=== PATIENT | male | born 1970 | race African-American/Black ===

== ENCOUNTER 2017-04-03 11:15 | Inpatient (IN) | payer OTHER ==
[2017-04-03 12:42] VITALS: BMI 26.6
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
[2017-04-03] MEDS ORDERED: MENTHOL/PHENOL 1 EACH UD MM PRN (14:42)
[2017-04-03] MEDS ORDERED: hydrOXYzine PAMOATE 50 MG CAPSULE (FP) PO PRN (14:42)
[2017-04-03] MEDS ORDERED: MAG HYDROX/AL HYDROX/SIMETH 30 ML UNIT-DOSE CUP PO PRN (14:42)
[2017-04-03] MEDS ORDERED: MAGNESIUM CITRATE 300 ML BOTTLE PO PRN (14:42)
[2017-04-03] MEDS ORDERED: diphenhydrAMINE HCL 50 MG CAPSULE PO PRN (14:42)
[2017-04-03] MEDS ORDERED: IBUPROFEN 400 MG TABLET (FP) PO PRN (14:42)
[2017-04-03] MEDS ORDERED: guaiFENesin/D-METHORPHAN HB 10 ML UNIT-DOSE CUPS PO PRN (14:42)
[2017-04-03] MEDS ORDERED: LOPERAMIDE HCL 2 MG CAPSULE PO PRN (14:42)
[2017-04-03] MEDS ORDERED: MAGNESIUM HYDROX 2400MG/30ML ORAL SUSPENSION 30 ML CUP PO PRN (14:42)
[2017-04-03] MEDS ORDERED: P-EPHED 60MG/TRIPROLIDI 2.5MG TABLET PO PRN (14:42)
[2017-04-03] MEDS ORDERED: IBUPROFEN 600 MG TABLET (FP) PO PRN (14:45)
[2017-04-03 16:48] LABS: MCH 29.7 pg (25.7-33.7); MEAN CELL VOLUME 87.4 fl (80-96); MEAN PLT VOLUME 8.4 fl (7.5-11.1); PLATELET COUNT 283 K/MM3 (134-434); WHITE BLOOD COUNT 6.5 K/mm3 (4.0-10.0)
[2017-04-03 17:00] LABS: URINE APPEARANCE CLEAR; URINE BILIRUBIN NEGATIVE (NEGATIVE); URINE BLOOD NEGATIVE (NEGATIVE); URINE COLOR YELLOW; URINE GLUCOSE (UA) NEGATIVE (NEGATIVE); URINE KETONE NEGATIVE (NEGATIVE); URINE LEUK ESTERASE NEGATIVE (NEGATIVE); URINE NITRITE NEGATIVE (NEGATIVE); URINE PROTEIN NEGATIVE (NEGATIVE); URINE UROBILINOGEN NEGATIVE mg/dL (0.2-1.0)
[2017-04-03 17:18] LABS: ALBUMIN 4.3 g/dl (3.4-5.0); ANION GAP 10 (8-16); BILIRUBIN,TOTAL 0.3 mg/dL (0.2-1.0); CALCIUM 9.1 mg/dL (8.5-10.1); CO2 26 mmol/L (21-32); CREATININE 1.1 mg/dL (0.7-1.3); GLUCOSE,RANDOM 117 mg/dL (74-106); SGOT/AST 13 U/L (15-37); SGPT/ALT 20 U/L (12-78); TOT PROT 7.5 g/dl (6.4-8.2)
[2017-04-03 17:19] LABS: ALK PHOS 76 U/L (45-117)
[2017-04-03] MEDS: ERGOCALCIFEROL (VITAMIN D2) 50,000 UNIT CAPSULE (FP) PO SCH (17:22)
[2017-04-03] MEDS: hydrOXYzine PAMOATE 50 MG CAPSULE (FP) PO SCH (21:10)
[2017-04-03] MEDS: QUEtiapine FUMARATE 400 MG TABLET PO SCH (21:10)
[2017-04-03] MEDS: THIAMINE HCL 100 MG TABLET (FP) PO SCH (21:11)
[2017-04-04] MEDS: PANTOPRAZOLE 40 MG TABLET (FP) PO SCH ×2 (00:02→09:43)
[2017-04-04] MEDS: NICOTINE 7 MG/24 HOURS TOPICAL PATCH TD SCH (09:43)
[2017-04-04] MEDS: busPIRone HCL 10 MG TABLET (FP) PO SCH (09:43)
[2017-04-04] MEDS: PRENATAL VITAMINS W/ FOLIC ACID TABLET (FP) PO SCH (09:43)
[2017-04-04] MEDS: NICOTINE POLACRILEX 4 MG GUM BC PRN (09:44)
[2017-04-04] MEDS ORDERED: PANTOPRAZOLE 40 MG TABLET (FP) PO SCH (10:00)
--- NOTE | 2017-04-04 11:33 | EKG ---
Test Reason : Blood Pressure : / mmHG Vent. Rate : 087 BPM Atrial Rate : 087 BPM P-R Int : 172 ms QRS Dur : 074 ms QT Int : 342 ms P-R-T Axes : 064 070 075 degrees QTc Int : 411 ms NORMAL SINUS RHYTHM POSSIBLE LEFT ATRIAL ENLARGEMENT BORDERLINE ECG NO PREVIOUS ECGS AVAILABLE Confirmed by ROSALEE LUJAN, JULIO ([id number]) on 04/04/2017 11:33:01 AM Referred By: Confirmed By:JULIO TURK MD
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
[2017-04-04] MEDS: MIRTAZAPINE 15 MG TABLET (FP) PO SCH (21:32)
[2017-04-04] MEDS: hydrOXYzine PAMOATE 50 MG CAPSULE (FP) PO SCH (21:33)
[2017-04-04] MEDS: THIAMINE HCL 100 MG TABLET (FP) PO SCH (21:33)
[2017-04-04] MEDS: QUEtiapine FUMARATE 400 MG TABLET PO SCH (21:33)
[2017-04-05] MEDS: PRENATAL VITAMINS W/ FOLIC ACID TABLET (FP) PO SCH (09:44)
[2017-04-05] MEDS: busPIRone HCL 10 MG TABLET (FP) PO SCH (09:44)
[2017-04-05] MEDS: PANTOPRAZOLE 40 MG TABLET (FP) PO SCH ×2 (09:45→21:05)
[2017-04-05] MEDS: NICOTINE 7 MG/24 HOURS TOPICAL PATCH TD SCH (09:45)
[2017-04-05] MEDS: THIAMINE HCL 100 MG TABLET (FP) PO SCH (21:05)
[2017-04-05] MEDS: QUEtiapine FUMARATE 400 MG TABLET PO SCH (21:05)
[2017-04-05] MEDS: hydrOXYzine PAMOATE 50 MG CAPSULE (FP) PO SCH (21:05)
[2017-04-05] MEDS: MIRTAZAPINE 15 MG TABLET (FP) PO SCH (21:05)
[2017-04-06] MEDS: busPIRone HCL 10 MG TABLET (FP) PO SCH (09:48)
[2017-04-06] MEDS: PRENATAL VITAMINS W/ FOLIC ACID TABLET (FP) PO SCH (09:48)
[2017-04-06] MEDS: NICOTINE POLACRILEX 4 MG GUM BC PRN ×2 (09:49→14:42)
[2017-04-06] MEDS: NICOTINE 7 MG/24 HOURS TOPICAL PATCH TD SCH (09:49)
[2017-04-06] MEDS: THIAMINE HCL 100 MG TABLET (FP) PO SCH (21:10)
[2017-04-06] MEDS: MIRTAZAPINE 15 MG TABLET (FP) PO SCH (21:10)
[2017-04-06] MEDS: QUEtiapine FUMARATE 400 MG TABLET PO SCH (21:10)
[2017-04-06] MEDS: PANTOPRAZOLE 40 MG TABLET (FP) PO SCH (21:10)
[2017-04-06] MEDS: hydrOXYzine PAMOATE 50 MG CAPSULE (FP) PO SCH (21:10)
[2017-04-07] MEDS: PRENATAL VITAMINS W/ FOLIC ACID TABLET (FP) PO SCH (09:51)
[2017-04-07] MEDS: busPIRone HCL 10 MG TABLET (FP) PO SCH (09:51)
[2017-04-07] MEDS: NICOTINE 7 MG/24 HOURS TOPICAL PATCH TD SCH (09:52)
[2017-04-07] MEDS: hydrOXYzine PAMOATE 50 MG CAPSULE (FP) PO SCH (21:07)
[2017-04-07] MEDS: QUEtiapine FUMARATE 400 MG TABLET PO SCH (21:07)
[2017-04-07] MEDS: THIAMINE HCL 100 MG TABLET (FP) PO SCH (21:07)
[2017-04-07] MEDS: PANTOPRAZOLE 40 MG TABLET (FP) PO SCH (21:07)
[2017-04-07] MEDS: MIRTAZAPINE 15 MG TABLET (FP) PO SCH (21:08)
[2017-04-08] MEDS: PRENATAL VITAMINS W/ FOLIC ACID TABLET (FP) PO SCH (09:49)
[2017-04-08] MEDS: busPIRone HCL 10 MG TABLET (FP) PO SCH (09:49)
[2017-04-08] MEDS: NICOTINE 7 MG/24 HOURS TOPICAL PATCH TD SCH (09:49)
[2017-04-08] MEDS: NICOTINE POLACRILEX 4 MG GUM BC PRN (09:51)
[2017-04-08] MEDS: ACETAMINOPHEN 325 MG TABLET (FP) PO PRN (17:39)
[2017-04-08] MEDS: hydrOXYzine PAMOATE 50 MG CAPSULE (FP) PO SCH (21:09)
[2017-04-08] MEDS: THIAMINE HCL 100 MG TABLET (FP) PO SCH (21:09)
[2017-04-08] MEDS: MIRTAZAPINE 15 MG TABLET (FP) PO SCH (21:09)
[2017-04-08] MEDS: PANTOPRAZOLE 40 MG TABLET (FP) PO SCH (21:10)
[2017-04-08] MEDS: QUEtiapine FUMARATE 400 MG TABLET PO SCH (21:10)
[2017-04-09] MEDS: PRENATAL VITAMINS W/ FOLIC ACID TABLET (FP) PO SCH (09:59)
[2017-04-09] MEDS: busPIRone HCL 10 MG TABLET (FP) PO SCH (09:59)
[2017-04-09] MEDS: NICOTINE 7 MG/24 HOURS TOPICAL PATCH TD SCH (09:59)
[2017-04-09] MEDS: NICOTINE POLACRILEX 4 MG GUM BC PRN (10:00)
[2017-04-09] MEDS: THIAMINE HCL 100 MG TABLET (FP) PO SCH (21:11)
[2017-04-09] MEDS: hydrOXYzine PAMOATE 50 MG CAPSULE (FP) PO SCH (21:12)
[2017-04-09] MEDS: MIRTAZAPINE 15 MG TABLET (FP) PO SCH (21:12)
[2017-04-09] MEDS: PANTOPRAZOLE 40 MG TABLET (FP) PO SCH (21:12)
[2017-04-09] MEDS: QUEtiapine FUMARATE 400 MG TABLET PO SCH (21:12)
[2017-04-10] MEDS: ERGOCALCIFEROL (VITAMIN D2) 50,000 UNIT CAPSULE (FP) PO SCH (09:55)
[2017-04-10] MEDS: NICOTINE 7 MG/24 HOURS TOPICAL PATCH TD SCH (09:55)
[2017-04-10] MEDS: PRENATAL VITAMINS W/ FOLIC ACID TABLET (FP) PO SCH (09:55)
[2017-04-10] MEDS: busPIRone HCL 10 MG TABLET (FP) PO SCH (09:55)
[2017-04-10] MEDS: NICOTINE POLACRILEX 4 MG GUM BC PRN (09:57)
[2017-04-10] MEDS: hydrOXYzine PAMOATE 50 MG CAPSULE (FP) PO SCH (21:09)
[2017-04-10] MEDS: THIAMINE HCL 100 MG TABLET (FP) PO SCH (21:09)
[2017-04-10] MEDS: MIRTAZAPINE 15 MG TABLET (FP) PO SCH (21:10)
[2017-04-10] MEDS: QUEtiapine FUMARATE 400 MG TABLET PO SCH (21:10)
[2017-04-10] MEDS: PANTOPRAZOLE 40 MG TABLET (FP) PO SCH (21:10)
[2017-04-11] MEDS ORDERED: PT OWN MED DRAWER 7, Y5N ONE (08:49)
[2017-04-11] MEDS: PRENATAL VITAMINS W/ FOLIC ACID TABLET (FP) PO SCH (09:56)
[2017-04-11] MEDS: busPIRone HCL 10 MG TABLET (FP) PO SCH (09:56)
[2017-04-11] MEDS: NICOTINE POLACRILEX 4 MG GUM BC PRN (09:57)
[2017-04-11] MEDS: NICOTINE 7 MG/24 HOURS TOPICAL PATCH TD SCH (11:36)
[2017-04-11] MEDS: QUEtiapine FUMARATE 400 MG TABLET PO SCH (21:07)
[2017-04-11] MEDS: THIAMINE HCL 100 MG TABLET (FP) PO SCH (21:07)
[2017-04-11] MEDS: PANTOPRAZOLE 40 MG TABLET (FP) PO SCH (21:08)
[2017-04-11] MEDS: MIRTAZAPINE 15 MG TABLET (FP) PO SCH (21:08)
[2017-04-11] MEDS: hydrOXYzine PAMOATE 50 MG CAPSULE (FP) PO SCH (21:08)
[2017-04-12] MEDS: busPIRone HCL 10 MG TABLET (FP) PO SCH (09:43)
[2017-04-12] MEDS: PRENATAL VITAMINS W/ FOLIC ACID TABLET (FP) PO SCH (09:43)
[2017-04-12] MEDS: NICOTINE 7 MG/24 HOURS TOPICAL PATCH TD SCH (09:43)
[2017-04-12] MEDS: NICOTINE POLACRILEX 4 MG GUM BC PRN (09:44)
[2017-04-12] MEDS: PANTOPRAZOLE 40 MG TABLET (FP) PO SCH (21:02)
[2017-04-12] MEDS: THIAMINE HCL 100 MG TABLET (FP) PO SCH (21:02)
[2017-04-12] MEDS: hydrOXYzine PAMOATE 50 MG CAPSULE (FP) PO SCH (21:02)
[2017-04-12] MEDS: QUEtiapine FUMARATE 400 MG TABLET PO SCH (21:02)
[2017-04-12] MEDS: MIRTAZAPINE 15 MG TABLET (FP) PO SCH (21:02)
[2017-04-13] MEDS: NICOTINE POLACRILEX 4 MG GUM BC PRN (09:46)
[2017-04-13] MEDS: PRENATAL VITAMINS W/ FOLIC ACID TABLET (FP) PO SCH (09:46)
[2017-04-13] MEDS: NICOTINE 7 MG/24 HOURS TOPICAL PATCH TD SCH (09:46)
[2017-04-13] MEDS: busPIRone HCL 10 MG TABLET (FP) PO SCH (09:46)
[2017-04-13] MEDS: hydrOXYzine PAMOATE 50 MG CAPSULE (FP) PO SCH (21:04)
[2017-04-13] MEDS: QUEtiapine FUMARATE 400 MG TABLET PO SCH (21:04)
[2017-04-13] MEDS: THIAMINE HCL 100 MG TABLET (FP) PO SCH (21:05)
[2017-04-13] MEDS: MIRTAZAPINE 15 MG TABLET (FP) PO SCH (21:05)
[2017-04-13] MEDS: PANTOPRAZOLE 40 MG TABLET (FP) PO SCH (21:05)
[2017-04-14] MEDS: PRENATAL VITAMINS W/ FOLIC ACID TABLET (FP) PO SCH (09:39)
[2017-04-14] MEDS: busPIRone HCL 10 MG TABLET (FP) PO SCH (09:39)
[2017-04-14] MEDS: NICOTINE 7 MG/24 HOURS TOPICAL PATCH TD SCH (09:40)
[2017-04-14] MEDS: NICOTINE POLACRILEX 4 MG GUM BC PRN (09:40)
[2017-04-14] MEDS: MIRTAZAPINE 15 MG TABLET (FP) PO SCH (21:05)
[2017-04-14] MEDS: QUEtiapine FUMARATE 400 MG TABLET PO SCH (21:05)
[2017-04-14] MEDS: PANTOPRAZOLE 40 MG TABLET (FP) PO SCH (21:05)
[2017-04-14] MEDS: THIAMINE HCL 100 MG TABLET (FP) PO SCH (21:06)
[2017-04-14] MEDS: hydrOXYzine PAMOATE 50 MG CAPSULE (FP) PO SCH (21:06)
[2017-04-15] MEDS: busPIRone HCL 10 MG TABLET (FP) PO SCH (10:04)
[2017-04-15] MEDS: PRENATAL VITAMINS W/ FOLIC ACID TABLET (FP) PO SCH (10:04)
[2017-04-15] MEDS: NICOTINE POLACRILEX 4 MG GUM BC PRN ×2 (10:05→21:07)
[2017-04-15] MEDS: NICOTINE 7 MG/24 HOURS TOPICAL PATCH TD SCH (10:05)
[2017-04-15] MEDS: THIAMINE HCL 100 MG TABLET (FP) PO SCH (21:05)
[2017-04-15] MEDS: hydrOXYzine PAMOATE 50 MG CAPSULE (FP) PO SCH (21:05)
[2017-04-15] MEDS: QUEtiapine FUMARATE 400 MG TABLET PO SCH (21:05)
[2017-04-15] MEDS: MIRTAZAPINE 15 MG TABLET (FP) PO SCH (21:06)
[2017-04-15] MEDS: PANTOPRAZOLE 40 MG TABLET (FP) PO SCH (21:06)
[2017-04-16] MEDS: busPIRone HCL 10 MG TABLET (FP) PO SCH (09:46)
[2017-04-16] MEDS: PRENATAL VITAMINS W/ FOLIC ACID TABLET (FP) PO SCH (09:46)
[2017-04-16] MEDS: NICOTINE 7 MG/24 HOURS TOPICAL PATCH TD SCH (09:46)
[2017-04-16] MEDS: NICOTINE POLACRILEX 4 MG GUM BC PRN (09:47)
[2017-04-16] MEDS: ACETAMINOPHEN 325 MG TABLET (FP) PO PRN ×2 (14:15→18:22)
[2017-04-16] MEDS: QUEtiapine FUMARATE 400 MG TABLET PO SCH (21:07)
[2017-04-16] MEDS: THIAMINE HCL 100 MG TABLET (FP) PO SCH (21:07)
[2017-04-16] MEDS: MIRTAZAPINE 15 MG TABLET (FP) PO SCH (21:08)
[2017-04-16] MEDS: PANTOPRAZOLE 40 MG TABLET (FP) PO SCH (21:08)
[2017-04-16] MEDS: hydrOXYzine PAMOATE 50 MG CAPSULE (FP) PO SCH (21:08)
[2017-04-17] MEDS: busPIRone HCL 10 MG TABLET (FP) PO SCH (09:47)
[2017-04-17] MEDS: PRENATAL VITAMINS W/ FOLIC ACID TABLET (FP) PO SCH (09:47)
[2017-04-17] MEDS: NICOTINE 7 MG/24 HOURS TOPICAL PATCH TD SCH (09:47)
[2017-04-17] MEDS: ERGOCALCIFEROL (VITAMIN D2) 50,000 UNIT CAPSULE (FP) PO SCH (09:47)
[2017-04-17] MEDS: NICOTINE POLACRILEX 4 MG GUM BC PRN ×2 (09:48→21:08)
[2017-04-17] MEDS: QUEtiapine FUMARATE 400 MG TABLET PO SCH (21:06)
[2017-04-17] MEDS: MIRTAZAPINE 15 MG TABLET (FP) PO SCH (21:06)
[2017-04-17] MEDS: PANTOPRAZOLE 40 MG TABLET (FP) PO SCH (21:06)
[2017-04-17] MEDS: THIAMINE HCL 100 MG TABLET (FP) PO SCH (21:06)
[2017-04-17] MEDS: hydrOXYzine PAMOATE 50 MG CAPSULE (FP) PO SCH (21:06)
[2017-04-18] MEDS: busPIRone HCL 10 MG TABLET (FP) PO SCH (10:04)
[2017-04-18] MEDS: NICOTINE POLACRILEX 4 MG GUM BC PRN (10:04)
[2017-04-18] MEDS: PRENATAL VITAMINS W/ FOLIC ACID TABLET (FP) PO SCH (10:04)
[2017-04-18] MEDS: NICOTINE 7 MG/24 HOURS TOPICAL PATCH TD SCH (10:04)
[2017-04-18] MEDS: QUEtiapine FUMARATE 400 MG TABLET PO SCH (21:01)
[2017-04-18] MEDS: MIRTAZAPINE 15 MG TABLET (FP) PO SCH (21:01)
[2017-04-18] MEDS: PANTOPRAZOLE 40 MG TABLET (FP) PO SCH (21:02)
[2017-04-18] MEDS: hydrOXYzine PAMOATE 50 MG CAPSULE (FP) PO SCH (21:02)
[2017-04-18] MEDS: THIAMINE HCL 100 MG TABLET (FP) PO SCH (21:03)
[2017-04-19 06:43] VITALS: BP 118/66; PULSE 91; TEMP 97.3
--- NOTE | 2017-04-19 09:23 | PN ---
Psychiatric Progress Note Vital Signs: Vital Signs Period Temp Pulse Resp BP Sys/Botello Pulse Ox Last 24 Hr 97.3 F 91 16-18 118/66 Date of Session: 04/19/17 Chief Complaint:: discharge visit HPI: Patient has addressed cannabis dependence comrbid Schizoaffective disorder. ROS: Acid Reflux, Chronic Back pain, Vit D Deficiency medically managed Current Medications: Active Medications Generic Name Dose Route Start Last Admin Trade Name Freq PRN Reason Stop Dose Admin Acetaminophen 650 mg 04/03/17 14:42 04/16/17 18:22 Tylenol - PO 650 mg Q4H PRN Administration PAIN Al Hydroxide/Mg Hydroxide 30 ml 04/03/17 14:42 04/04/17 21:35 Mylanta Oral Suspension - PO 30 ml Q6H PRN Administration DYSPEPSIA Buspirone HCl 20 mg 04/04/17 10:00 04/18/17 10:04 Buspar - PO 20 mg DAILY HENRIETTA Administration Diphenhydramine HCl 50 mg 04/03/17 14:42 Benadryl - PO HSMR1 PRN INSOMNIA Ergocalciferol 50,000 unit 04/03/17 15:15 04/17/17 09:47 Drisdol - PO 50,000 unit We@1000 HENRIETTA Administration Eucalyptus/Menthol/Phenol/Sorbitol 1 each 04/03/17 14:42 Cepastat Lozenge - MM Q4H PRN SORE THROAT Guaifenesin 10 ml 04/03/17 14:42 Robitussin Dm - PO Q6H PRN COUGH Hydroxyzine Pamoate 50 mg 04/03/17 14:42 Vistaril - PO Q4H PRN AGITATION Hydroxyzine Pamoate 100 mg 04/03/17 22:00 04/18/17 21:02 Vistaril - PO 100 mg HS HENRIETTA Administration Loperamide HCl 4 mg 04/03/17 14:42 Imodium - PO Q6H PRN DIARRHEA Magnesium Citrate 300 ml 04/03/17 14:42 Citroma - PO Q48H PRN CONSTIPATION Magnesium Hydroxide 30 ml 04/03/17 14:42 Milk Of Magnesia - PO DAILY PRN CONSTIPATION Mirtazapine 45 mg 04/04/17 22:00 04/18/17 21:01 Remeron - PO 45 mg HS HENRIETTA Administration Nicotine 7 mg 04/04/17 10:00 09/14/17 10:04 Nicoderm Patch - TD Not Given DAILY HENRIETTA Nicotine Polacrilex 4 mg 04/03/17 14:42 04/18/17 10:04 Nicorette Gum - BC 4 mg Q2H PRN Administration NICOTINE REPLACEMENT RX Pantoprazole Sodium 40 mg 04/05/17 22:00 04/18/17 21:02 Protonix - PO 40 mg HS HENRIETTA Administration Multivit/Folic Acid/Iron 1 tab 04/04/17 10:00 04/18/17 10:04 Vitamins (Sjr) - PO 1 tab DAILY HENRIETTA Administration Pseudoephedrine/Triprolidine 1 combo 04/03/17 14:42 Actifed - PO TID PRN NASAL CONGESTION Quetiapine Fumarate 400 mg 04/03/17 22:00 04/18/17 21:01 Seroquel - PO 400 mg HS HENRIETTA Administration Thiamine HCl 100 mg 04/03/17 22:00 04/18/17 21:03 Vitamin B1 - PO 100 mg HS HENRIETTA Administration Current Side Effect: No Lab tests ordered: No Lab tests reviewed: Yes Provider note:: Patient has competed today his treatment and met his goals, will continue to address his issues at [facility] program, he gained insights into importance of changing attitudes for the utilization of supports to perevent relapses and continue maintain abstinence. Medications Seroquel, Buspar and Vistaril well tolerated, no side-effects reported, patient states he feels much better, scripts provided for 30 days, he is stable for discharge today. Total face to face time:: 20 Mental Status Exam - Mental Status Exam Alert and Oriented to: Time, Place, Person Cognitive Function: Good Patient Appearance: Well Groomed Mood: Hopeful Affect: Appropriate, Mood Congruent Patient Behavior: Appropriate, Cooperative Speech Pattern: Clear, Appropriate Voice Loudness: Normal Thought Process: Intact, Goal Oriented Thought Disorder: Not Present Hallucinations: Denies Suicidal Ideation: Denies Homicidal Ideation: Denies Insight/Judgement: Fair Sleep: Fair Appetite: Fair Muscle strength/Tone: Normal Gait/Station: Normal
[2017-04-19] MEDS: PRENATAL VITAMINS W/ FOLIC ACID TABLET (FP) PO SCH (09:39)
[2017-04-19] MEDS: busPIRone HCL 10 MG TABLET (FP) PO SCH (09:39)
[2017-04-19] MEDS: NICOTINE POLACRILEX 4 MG GUM BC PRN (09:41)
[2017-04-19] MEDS: NICOTINE 7 MG/24 HOURS TOPICAL PATCH TD SCH (09:41)
== END 2017-04-19 10:15 | disposition home or self-care (01) | DRG 772 ==
LOC: YASAS 11:15 → Y5N 14:42
PROVIDERS: ADMIT Psychiatry & Neurology Psychiatry; ATTEND Psychiatry & Neurology Psychiatry
PROC: HZ42ZZZ Group Counseling for Substance Abuse Treatment, Cognitive-Behavioral (ICD-10-PCS; principal; 2017-04-03)
DX: F12.20 Cannabis dependence, uncomplicated (principal); F10.10 Alcohol abuse, uncomplicated; F25.9 Schizoaffective disorder, unspecified; E55.9 Vitamin D deficiency, unspecified; M54.5 Low back pain; G89.29 Other chronic pain
CPT/HCPCS: 36415; 71020-TC; 80053; 81003; 85027; 86593; 93005; 93010